=== PATIENT | male | born 1970 | race Caucasian/White ===

== ENCOUNTER 2021-06-06 19:04 | Emergency (ER) | payer MEDICAID ==
[~2021-06-06] VITALS: Ht 177.8 cm; Wt 81.0 kg
--- NOTE | 2021-06-06 19:33 | NUR ---
[id number]
[2021-06-06 20:00] VITALS: BP 124/89
--- NOTE | 2021-06-06 20:40 | NUR ---
Martin RN note: Pt refused lab work at this time.
--- NOTE | 2021-06-06 23:27 | NUR ---
griddle cook note: Pt to room from lobby.
--- NOTE | 2021-06-06 23:45 | NUR ---
ERP at bedside. Patient being uncooperative with planning goals and tx. Refusing labs.
--- NOTE | 2021-06-07 01:02 | NUR ---
Report to AMY Horner. Patient care transferred.
--- NOTE | 2021-06-07 02:23 | NUR ---
PT CONTINUES TO SLEEP IN BED, AT BEDSIDE, NO NEW ORDERS
== END 2021-06-07 03:29 | disposition home or self-care (01) ==
LOC: ED 19:15
DX: M54.12 Radiculopathy, cervical region (principal)
CPT/HCPCS: 99283